=== PATIENT | male | born 1945 | race Caucasian/White ===

== ENCOUNTER → 2016-05-26 | Outpatient (CLI) | payer OTHER ==
[~2016-05-26] MED LIST: ASPIR 8181 MG PO; COREG 3.125M3.125 MG PO; COUMADIN 7.5MG7.5 MG PO; GLUCOPHAGE500 MG PO; GLUCOTROL 10 MG10 MG PO; HYDROCHLOROTH12.5 M1 PO; LIPITOR TAB 2020 MG PO; LOSARTAN POTAS100 MG PO; NITROGLYCERIN0.4 MG SL; OMEPRAZOLE20 MG PO; PROSCAR 5 MG TAB5 MG PO; VITAMIN D2000 UNIT PO
== END ==
LOC: HEART 5 05-03 08:00
DX: I25.10 Atherosclerotic heart disease of native coronary artery without angina pectoris (principal); I49.3 Ventricular premature depolarization
CPT/HCPCS: 78452; 93306; A9502; J2785

== ENCOUNTER → 2016-06-17 | Day surgery (SDC) | payer OTHER | END | disposition home or self-care (01) | LOC: OPSV2 07:06 | PROC: B246ZZ4 Ultrasonography of Right and Left Heart, Transesophageal (ICD-10-PCS; principal; 2016-06-17) | DX: I51.7 Cardiomegaly (principal); I34.0 Nonrheumatic mitral (valve) insufficiency; I07.1 Rheumatic tricuspid insufficiency; I48.91 Unspecified atrial fibrillation; I27.2 Other secondary pulmonary hypertension; Q21.1 Atrial septal defect; I25.118 Atherosclerotic heart disease of native coronary artery with other forms of angina pectoris; Z95.1 Presence of aortocoronary bypass graft; E11.9 Type 2 diabetes mellitus without complications; E78.5 Hyperlipidemia, unspecified; I11.0 Hypertensive heart disease with heart failure; I50.9 Heart failure, unspecified; K21.9 Gastro-esophageal reflux disease without esophagitis; I25.2 Old myocardial infarction; Z88.1 Allergy status to other antibiotic agents; Z79.82 Long term (current) use of aspirin; Z79.899 Other long term (current) drug therapy; Z98.49 Cataract extraction status, unspecified eye; Z87.891 Personal history of nicotine dependence | CPT/HCPCS: 82962; 93312; J1200; J2250; J2310; J3010; J7040 ==

== ENCOUNTER → 2020-08-24 | Outpatient (CLI) | payer OTHER ==
[~2020-08-24] MED LIST changes: +COQ-10100 MG PO; +DITROPAN XL10 MG PO; +ELIQUIS5 MG PO
== END ==
LOC: ECHO 12:46
DX: I48.91 Unspecified atrial fibrillation (principal); I25.10 Atherosclerotic heart disease of native coronary artery without angina pectoris; I08.3 Combined rheumatic disorders of mitral, aortic and tricuspid valves; I27.20 Pulmonary hypertension, unspecified; Q21.1 Atrial septal defect
CPT/HCPCS: ECHO; 93306